=== PATIENT | male | born 1985 | race Caucasian/White ===

== ENCOUNTER 2018-01-06 16:33 | Emergency (ER) | END 2018-01-06 19:13 | disposition home or self-care (01) ==

== ENCOUNTER 2018-01-08 15:05 | Emergency (ER) | END 2018-01-08 19:14 | disposition home or self-care (01) ==

== ENCOUNTER 2018-01-11 13:12 | Emergency (ER) | END 2018-01-11 16:45 | disposition left against medical advice (07) ==

== ENCOUNTER 2018-05-02 09:11 | Emergency (ER) | payer SELFPAY ==
[~2018-05-02] VITALS: Ht 170.2 cm; Wt 68.8 kg
[~2018-05-02 09:11] MED LIST: BENA20TA4 PO; HYDR-3980 PO; OMEP40CA6 PO; RANI150T35 PO
[2018-05-02 09:20] VITALS: Ht 170.2 cm; Wt 68.8 kg
[2018-05-02] MEDS ORDERED: KETOROLAC 15 MG INJ IV STA (09:46)
[2018-05-02] MEDS ORDERED: LIDOCAINE/MYLANTA 40 ML BTL PO STA (09:46)
[2018-05-02] MEDS ORDERED: BELLADONNA/PHENOBARBITAL TAB PO STA (09:46)
[2018-05-02] MEDS ORDERED: FAMOTIDINE 20 MG TAB PO STA (09:46)
[2018-05-02] MEDS ORDERED: ONDANSETRON 4 MG INJ IV STA (09:46)
[2018-05-02] MEDS ORDERED: SOD CHLORIDE 0.9% 500 ML IV STA (09:46)
--- NOTE | 2018-05-02 09:49 | ERD ---
ER Documentation Chief Complaint Chief Complaint HEADACHES; BODY PAINS , BACK ABDOMINAL PAIN, CHEST PRESSURE HPI 33-year-old man with a history of hypertension and gastritis has been noncompliant with his medications for a couple months. He states he has not been using his arthritis medications because they have not been working but provides no explanation for his blood pressure medication. He states he has burning in his epigastrium, belching, reflux for the last few weeks. Patient denies headache or blurry vision, no chest pain or shortness of breath, no vomiting or diarrhea. Patient denies blood per rectum or melena. ROS All systems reviewed and are negative except as per history of present illness. Medications Home Meds Active Scripts Hydrochlorothiazide* (Hydrochlorothiazide*) 25 Mg Tab, 25 MG PO DAILY, #30 TAB Prov:SHIVA TOWNSEND MD 05/02/18 Lisinopril* (Lisinopril*) 10 Mg Tablet, 10 MG PO DAILY, #30 TAB Prov:SHIVA TOWNSEND MD 05/02/18 Esomeprazole Mag Trihydrate (Nexium) 40 Mg Capsule., 40 MG PO DAILY, #30 CAP Prov:SHIVA TOWNSEND MD 05/02/18 Omeprazole* (Omeprazole*) 40 Mg Capsule., 40 MG PO DAILY, #30 CAP Prov:EDWARD QUESADA MD 01/06/18 Ranitidine Hcl* (Zantac*) 150 Mg Tablet, 150 MG PO BID PRN for EPIGASTRIC PAIN, #30 TAB Prov:EDWARD QUESADA MD 01/06/18 Reported Medications Magnesium Hydroxide* (Milk Of Magnesia*) 400 Mg/5 Ml Oral.susp, 30 ML PO DAILY PRN for CONSTIPATION, ML 05/02/18 Benazepril Hcl* (Benazepril Hcl*) 20 Mg Tablet, 20 MG PO DAILY, #30 TAB 01/08/18 Discontinued Scripts Hydrocodone/Acetaminophen ([place] 10-325 Tablet) 1 Each Tablet, 1 TAB PO Q6H PRN for PAIN, #7 TAB Prov:AZIZA NEGRON MD 01/08/18 Allergies Allergies: Coded Allergies: No Known Allergy (Unverified , 01/08/18) PMhx/Soc Gastritis, hypertension, medication noncompliance History of Surgery: No Anesthesia Reaction: No Hx Neurological Disorder: No Hx Respiratory Disorders: No Hx Cardiac Disorders: Yes (HTN) Hx Psychiatric Problems: No Hx Miscellaneous Medical Probl: No Hx Alcohol Use: No Hx Substance Use: No Hx Tobacco Use: No FmHx Family History: No diabetes Physical Exam Vitals Vital Signs Date Temp Pulse Resp B/P (MAP) Pulse Ox O2 O2 Flow FiO2 Time Delivery Rate 05/02/18 71 20 166/100 99 Room Air 11:59 (122) 05/02/18 75 20 174/114 99 Room Air 11:08 (134) 05/02/18 77 20 182/120 98 Room Air 09:48 (140) 05/02/18 97.7 88 24 209/116 99 09:20 (147) Physical Exam GENERAL: Well-developed, well-nourished, well-hydrated, in no apparent distress, looks nontoxic in appearance HEENT: Moist mucous membranes, pink conjunctiva, no cervical spine tenderness or step-off deformities, no goiter, no jaundice or icterus, extraocular movements intact without pain. No submandibular induration, and no pharyngeal erythema NEURO: Alert and oriented 3, cranial nerves II through XII intact bilaterally, pupils equal round reactive to light, no focal deficits or facial asymmetry, sensation intact distally Strength 5/5 in upper and lower extremities bilaterally CARDIAC: Regular rate and rhythm, no murmurs rubs or gallops LUNGS: Clear bilaterally no wheezing crackles or stridor ABDOMEN: Soft nontender, no guarding, no rigidity, no rebound, no psoas sign no obturator sign. Normoactive bowel sounds SKIN: Warm and dry to touch, no abrasions, contusions, or hematomas, no lacerations, no ecchymosis, no target lesions, and without ulcers EXTREMITIES: No clubbing cyanosis or edema, calves are bilaterally symmetrical, no Homans sign, no popliteal cord sign. Distal pulses equal and bilateral PSYCH: Normal affect without agitation or irritability Result Diagram: 05/02/18 1001 05/02/18 1001 Results 24 hrs Laboratory Tests Test 05/02/18 10:01 White Blood Count 6.4 10^3/ul Red Blood Count 5.19 10^6/ul Hemoglobin 16.0 g/dl Hematocrit 47.8 % Mean Corpuscular Volume 92.1 fl Mean Corpuscular Hemoglobin 30.8 pg Mean Corpuscular Hemoglobin Concent 33.5 g/dl Red Cell Distribution Width 11.8 % Platelet Count 268 10^3/UL Mean Platelet Volume 11.6 fl Immature Granulocytes % 0.300 % Neutrophils % 57.7 % Lymphocytes % 34.5 % Monocytes % 6.6 % Eosinophils % 0.3 % Basophils % 0.6 % Nucleated Red Blood Cells % 0.0 /100WBC Immature Granulocytes # 0.020 10^3/ul Neutrophils # 3.7 10^3/ul Lymphocytes # 2.2 10^3/ul Monocytes # 0.4 10^3/ul Eosinophils # 0.0 10^3/ul Basophils # 0.0 10^3/ul Nucleated Red Blood Cells # 0.0 10^3/ul Sodium Level 146 mmol/L Potassium Level 4.1 mmol/L Chloride Level 104 mmol/L Carbon Dioxide Level 30 mmol/L Anion Gap 12 Blood Urea Nitrogen 12 mg/dl Creatinine 0.67 mg/dl Est Glomerular Filtrat Rate mL/min > 60 mL/min Glucose Level 96 mg/dl Calcium Level 10.1 mg/dl Total Bilirubin 0.5 mg/dl Direct Bilirubin 0.00 mg/dl Indirect Bilirubin 0.5 mg/dl Aspartate Amino Transf (AST/SGOT) 36 IU/L Alanine Aminotransferase (ALT/SGPT) 32 IU/L Alkaline Phosphatase 94 IU/L Troponin I < 0.012 ng/ml Total Protein 9.1 g/dl Albumin 4.9 g/dl Globulin 4.20 g/dl Albumin/Globulin Ratio 1.16 Lipase 84 U/L Current Medications Medications Dose Sig/Layla Start Time Status Last (Trade) Ordered Route PRN Stop Time Admin Dose Reason Admin Sodium 500 ml @ Q1H STAT 05/02/18 DC 05/02/18 Chloride 500 mls/hr IV 09:46 09:46 05/02/18 10:45 Ondansetron 4 mg ONCE STAT 05/02/18 DC 05/02/18 HCl (Zofran IV 09:46 09:46 Inj) 05/02/18 09:48 Famotidine 20 mg ONCE STAT 05/02/18 DC 05/02/18 (Pepcid) PO 09:46 09:46 05/02/18 09:48 40 ml ONCE STAT 05/02/18 DC 05/02/18 Miscellaneous PO 09:46 09:46 Medication 05/02/18 09:48 (Gi Cocktail (2)) Belladonna/ 2 tab ONCE STAT 05/02/18 DC 05/02/18 Phenobarbital PO 09:46 09:46 () 05/02/18 09:48 Ketorolac 15 mg ONCE STAT 05/02/18 DC 05/02/18 Tromethamine IV 09:46 09:46 (Toradol) 05/02/18 09:48 Enalaprilat 1.25 mg ONCE ONCE 05/02/18 DC 05/02/18 (Vasotec Iv) IV 10:00 10:59 05/02/18 10:01 Procedures/MDM IV line was established patient was placed on account auditor rhythm strip revealed a sinus rhythm at about 80 bpm with upright P and T waves. Patient was afebrile EKG performed, read by me: 85 bpm, normal sinus rhythm, normal axis, no acute ST segment changes, narrow QRS complex, with good R-wave progression in precordial leads. I administered 500 cc normal saline IV, GI cocktail p.o., famotidine 20 mg p.o., Toradol 15 mg IV, Zofran 4 mg IV, and enalapril 1.25 mg IV for hypertension. CBC and electrolytes are normal, liver function tests were normal, troponin was negative. Patient's hypertension and epigastric discomfort improved, I did prescribe him antihypertensives and gave him recommendations for outpatient follow-up including recommendation for upper endoscopy given his continued symptoms Differential diagnoses considered, included but not limited to acute coronary syndrome, pulmonary embolism, aortic dissection, abdominal aortic aneurysm, sepsis, stroke, meningitis, encephalitis, pneumonia, appendicitis, cholecystitis, bowel obstruction, pyelonephritis, nephrolithiasis, cystitis, as well as metabolic, hematologic, and electrolyte abnormalities. As well as abscess, cellulitis, fractures, and dislocations. Patient feels much better at this time, and vital signs are normal, symptoms have improved. I did give strict instructions to return to the ED if symptoms continue or worsen, patient will otherwise follow-up with primary care physician. Patient understood instructions and agreed to plan. Disclaimer: Inadvertent spelling and grammatical errors are likely due to EHR/dictation software use and do not reflect on the overall quality of patient care. Also, please note that the electronic time recorded on this note does not necessarily reflect the actual time of the patient encounter. Departure Diagnosis: Primary Impression: Noncompliance with medication regimen Additional Impressions: Gastritis Gastritis type: unspecified gastritis Chronicity: acute Gastritis bleeding: without bleeding Qualified Codes: K29.00 - Acute gastritis without bleeding Hypertension Hypertension type: essential hypertension Qualified Codes: I10 - Essential (primary) hypertension Condition: SHIVA Seymour MD May 02, 2018 09:49
[2018-05-02] MEDS ORDERED: ENALAPRILAT 1.25 MG INJ IV ONE (10:00)
[2018-05-02] MEDS ORDERED: MAGN400O19 PO (10:23)
[2018-05-02] MEDS ORDERED: LISI10TA2 PO (10:40)
[2018-05-02] MEDS ORDERED: HYDR25TA6 PO (10:40)
[2018-05-02] MEDS ORDERED: ESOM40CA PO (10:40)
[2018-05-02 11:59] VITALS: BP 166/100; PULSE 71; RESP 20
== END 2018-05-02 12:40 | disposition home or self-care (01) ==
LOC: E/R 09:11
DX: K29.00 Acute gastritis without bleeding (principal); I10 Essential (primary) hypertension; Z91.14 Patient's other noncompliance with medication regimen
CPT/HCPCS: 36415; 80053; 83690; 84484; 85025; 96374; 96375; 99284; J1885; J2405; J7040